=== PATIENT | male | born 1980 | race Caucasian/White ===

== ENCOUNTER 2017-11-05 09:45 | Emergency (ER) | payer OTHER ==
[2017-11-05 09:56] VITALS: BP 131/81; PULSE 81; RESP 16; TEMP 97.9; O2SAT 95
--- NOTE | 2017-11-05 10:03 | EDPHY ---
H & P Time Seen by Provider: 11/05/17 10:02 HPI/ROS: Chief complaint. Numbness right forearm HPI. 37-year-old male presents emergency department with complaint of numbness to the dorsum of the right forearm. Patient works at [employer] and 2 days ago while at work he was helping to lift a washer and dryer to bring it down the stairs. He was using a shoulder harness strap type system that put pressure on his right shoulder. It did cause some discomfort to the top of his right shoulder. He went home and used heat. The shoulder pain has gone away. He has no neck pain. Today however he noticed some decreased sensation on the dorsum of the right forearm. No weakness and he has been able to lift and use his arm. No other complaints. No similar symptoms previously ROS Constitutional. no fever/chills, no weakness Eyes. no problems with vision ENT. no sore throat, no nasal drainage Cardiovascular. no chest pain Respiratory. no shortness of breath, no cough Abdominal. no abdominal pain, no nausea/vomiting, no diarrhea . no problems urinating MS. no calf pain/swelling, no neck/back pain, no joint pain Skin. no rash Lymph. no swollen glands Neuro. Decreased sensation dorsum right forearm Past Medical/Surgical History: Tonsillectomy Social History: Single, nonsmoker, no alcohol Smoking Status: Never smoked Physical Exam: General Appearance: Alert well-developed male no distress vital signs stable Eyes: Pupils equal and round no pallor or injection. ENT, Mouth: Mucous membranes are moist. Respiratory: There are no retractions, lungs are clear to auscultation. Cardiovascular: Regular rate and rhythm. Gastrointestinal: Abdomen is soft and nontender, no masses, bowel sounds normal. Neurological: Awake and alert. There is no pronator drift. Subjective decreased sensation dorsum right forearm. No obvious surface trauma Skin: Warm and dry, no rashes. Musculoskeletal: Neck is supple nontender. Extremities symmetrical, full range of motion. Radial pulses full symmetrical and equal Psychiatric: Patient is oriented X 3, there is no agitation. Constitutional: Initial Vital Signs Temperature (C) 36.6 C 11/05/17 09:53 Heart Rate 81 11/05/17 09:53 Respiratory Rate 16 11/05/17 09:53 Blood Pressure 131/81 H 11/05/17 09:53 O2 Sat (%) 95 11/05/17 09:53 O2 Delivery Mode Room Air Allergies/Adverse Reactions: No Known Allergies Allergy (Unverified 11/05/17 09:56) Home Medications: Medication Instructions Recorded NK [No Known Home Meds] 11/05/17 Medical Decision Making ED Course/Re-evaluation: Patient remained stable. Patient and I discussed treatment plan including criteria for return importance of follow-up and further evaluation. He expresses understanding and agreement Differential Diagnosis: This is likely nerve compression from the way to the washer and dryer through the strap type harness on his shoulder. There is no focal weakness. There is no evidence for DVT. There is no evidence for arterial occlusion. I do not think this represents CVA Departure - Departure Disposition: Home, Routine, Self-Care Clinical Impression: Paresthesia of arm Condition: Good Instructions: Paresthesia (ED) Additional Instructions: Heat to arm 2-3 times daily next 2 days. Ibuprofen 600 mg every 6 hr for the next 2 days. Return for pain, swelling, weakness of arm. Recheck by work[employer] in 2-3 days if not improving Referrals: NONE *PRIMARY CARE P,. [Primary Care Provider] - As per Instructions Work Comp Referral [facility] [Outside] - As per Instructions Stand Alone Forms: Work Excuse
== END 2017-11-05 10:35 | disposition home or self-care (01) ==
LOC: CED 09:45
DX: R20.2 Paresthesia of skin (principal)